=== PATIENT | female | born 1950 | race Caucasian/White ===

== ENCOUNTER 2021-08-13 09:48 | Emergency (ER) | payer OTHER ==
[~2021-08-13] VITALS: Ht 147.3 cm; Wt 72.6 kg
[2021-08-13] MEDS ORDERED: IBUPROFEN IB200 MG PO (10:05)
[2021-08-13] MEDS ORDERED: ACETAMINOPHEN500 MG PO (10:05)
== END 2021-08-13 10:39 | disposition home or self-care (01) ==
LOC: FSED 09:55
DX: M25.572 Pain in left ankle and joints of left foot (principal); M77.52 Other enthesopathy of left foot and ankle; J44.9 Chronic obstructive pulmonary disease, unspecified; Z85.118 Personal history of other malignant neoplasm of bronchus and lung; Z85.51 Personal history of malignant neoplasm of bladder
CPT/HCPCS: 99282

== ENCOUNTER 2022-03-22 13:25 | Emergency (ER) | payer OTHER, MEDICARE ==
[~2022-03-22 13:25] MED LIST: ACETAMINOPHEN500 MG PO; IBUPROFEN IB200 MG PO
[2022-03-22] MEDS ORDERED: ALBUTEROL/IPRATROPIUM 3 ML NEB NEB ONE (14:00)
[2022-03-22] MEDS ORDERED: CEFTRIAXONE 1 GM VIAL ONE (14:15)
[2022-03-22] MEDS ORDERED: ALBUTEROL/IPRATROPIUM 3 ML NEB ONE (14:15)
[2022-03-22] MEDS ORDERED: METHYLPREDNISOLONE SOD SUCC 125 MG/2ML VIAL IV ONE (15:00)
[2022-03-22] MEDS ORDERED: CEPHALEXIN500 MG PO (15:42)
[2022-03-22] MEDS ORDERED: BROMFED DM COU118 ML PO (15:42)
[2022-03-22] MEDS ORDERED: PREDNISONE50 MG PO (15:42)
[2022-03-22] MEDS ORDERED: ALBUTEROL1.25 MG/3 NEB (15:42)
[2022-03-22 15:43] VITALS: BP 116/61
== END 2022-03-22 15:47 | disposition home or self-care (01) ==
LOC: FSED 13:37
DX: J44.1 Chronic obstructive pulmonary disease with (acute) exacerbation (principal); J11.1 Influenza due to unidentified influenza virus with other respiratory manifestations; I10 Essential (primary) hypertension; F17.200 Nicotine dependence, unspecified, uncomplicated; Z85.118 Personal history of other malignant neoplasm of bronchus and lung; Z85.51 Personal history of malignant neoplasm of bladder
CPT/HCPCS: 71045; 80053; 82553; 83518; 83880; 84484; 85025; 85379; 87400; 93005; 99283; J0696; J2930